=== PATIENT | male | born 1980 | race Two or more races ===

== ENCOUNTER 2017-09-25 14:23 | Emergency (ER) | payer MEDICAID ==
[~2017-09-25] VITALS: Ht 165.1 cm; Wt 67.9 kg
[2017-09-25 14:46] LABS: BASOPHILS % (AUTO) 0.4 % (0-1); EOSINOPHILS # (AUTO) 0.1 X10'3 (0-0.9); EOSINOPHILS % (AUTO) 1.2 % (0-6); HEMATOCRIT 43.6 % (42.0-52.0); HEMOGLOBIN 14.9 g/dl (14.0-17.9); LYMPHOCYTES # (AUTO) 1.8 X10'3 (1.1-4.8); LYMPHOCYTES % (AUTO) 15.8 % (21-51); MEAN CORPUSCULAR HEMOGLOBIN 33.6 PG (27.0-31.0); MEAN CORPUSCULAR HGB CONC 34.1 % (33.0-36.5); MEAN CORPUSCULAR VOLUME 98.4 FL (78-98); MEAN PLATELET VOLUME 7.6 FL (7.4-10.4); MONOCYTES # (AUTO) 0.7 X10'3 (0-0.9); MONOCYTES % (AUTO) 6.3 % (2-12); NEUTROPHILS # (AUTO) 8.9 X10'3 (1.8-7.7); NEUTROPHILS % (AUTO) 76.3 % (42-75); PLATELET COUNT 245 X10'3 (140-440); RED BLOOD COUNT 4.43 X10'6 (4.70-6.10); RED CELL DISTRIBUTION WIDTH 12.9 % (11.5-14.5); WHITE BLOOD COUNT 11.7 X10'3 (4.5-11.0)
[2017-09-25 14:56] LABS: INR 0.9 INR; PROTHROMBIN TIME 9.4 SECONDS (9.0-12.0)
[2017-09-25 15:02] LABS: ALANINE AMINOTRANSFERASE 72 U/L (12-78); ALBUMIN 3.7 G/DL (3.4-5.0); ALBUMIN/GLOBULIN RATIO 1.1 (1.1-1.5); ALKALINE PHOSPHATASE 103 IU/L (46-116); ANION GAP 9 (8-16); ASPARTATE AMINO TRANSFERASE 128 U/L (10-37); BILIRUBIN,TOTAL 0.3 MG/DL (0.1-1.0); BLOOD UREA NITROGEN 17 MG/DL (7-18); CALCIUM 8.1 MG/DL (8.5-10.1); CHLORIDE 99 MMOL/L (99-107); GLUCOSE 155 MG/DL (70-104); POTASSIUM 4.4 MMOL/L (3.5-5.1); SODIUM 137 MMOL/L (135-145); TOTAL CARBON DIOXIDE 29.2 MMOL/L (24-32); TOTAL PROTEIN 7.2 G/DL (6.4-8.2); eGFR 85 ML/MIN
[2017-09-25] MEDS ORDERED: ondansetron/PF 4mg/2ml inj IV ONE (17:10)
[2017-09-25] MEDS ORDERED: pantoprazole 40 MG vial IV ONE (17:10)
[2017-09-25] MEDS ORDERED: normal saline 1000ML IV soln IVB ONE (17:10)
[2017-09-25 17:19] LABS: CLARITY,URINE Clear (Clear); COLOR,URINE Yellow (Yellow); GLUCOSE, URINE Negative (Neg); KETONES,URINE Negative (Neg); LEUKOCYTE ESTERASE ,URINE Negative (Neg); NITRITES, URINE Negative (Neg); OCCULT BLOOD,URINE Small (Neg); PH,URINE 7.5 (4.8-8.0); PROTEIN,URINE Trace mg/dl (Neg)
[2017-09-25 17:20] LABS: LIPASE 243 U/L (73-393)
[2017-09-25 17:27] LABS: UA COLLECTION TYPE CLN CATCH MIDSTREAM
[2017-09-25 17:28] LABS: BACTERIA,URINE NONE SEEN /HPF (Neg); MUCUS STRANDS NONE SEEN /LPF (Neg); RBC,URINE 0-2 /HPF (0-2); SQUAMOUS EPITHELIAL CELL,UR NONE SEEN /LPF (FEW); WBC,URINE NONE SEEN /HPF (0-4)
[2017-09-25] MEDS ORDERED: PANT-47 PO (17:44)
[2017-09-25] MEDS ORDERED: sucralfate 1 gm tablet PO ONE (18:10)
[2017-09-25 18:18] VITALS: BP 155/81
== END 2017-09-25 18:22 | disposition home or self-care (01) ==
LOC: ER 14:23
DX: R10.31 Right lower quadrant pain (principal); R11.2 Nausea with vomiting, unspecified; F10.10 Alcohol abuse, uncomplicated; K21.9 Gastro-esophageal reflux disease without esophagitis
CPT/HCPCS: 36415; 80053; 81001; 83690; 85025; 85610; 96374; 96375; 99284; C9113; J2270; J2405; J7030

== ENCOUNTER 2018-11-20 11:22 | Inpatient (IN) | payer MEDICAID ==
[~2018-11-20] VITALS: Ht 167.6 cm; Wt 62.6 kg
[2018-11-20] VITALS (12 sets, daily range): BP systolic 119–145; BP diastolic 72–97
[~2018-11-20 11:22] MED LIST: PANT-47 PO
--- NOTE | 2018-11-20 11:49 | NUR ---
BIB EMS WITH C/O SYNCOPAL EPISODE. STRIKING BACK OF HEAD WITH FALL. HX DARK, BLOODY STOOLS AND EMESIS X 2 DAYS. STATES LOST CONSCIOUSNESS AT TIME OF INJURY. SUPERFICIAL ABRASION NOTED TO RIGHT PARIETAL.
--- NOTE | 2018-11-20 12:00 | NUR ---
DRIED, DARK BROWN BLOOD NOTED INSIDE RIGHT EAR AND UPPER CHEST AREAS. PT C/O HEADACHE AND ABD PAIN.
[2018-11-20 12:28] LABS: EOSINOPHILS % (AUTO) 0 % (0-6); MEAN CORPUSCULAR HGB CONC 29.8 g/dL (33.0-36.5)
[2018-11-20 12:29] LABS: BASOPHILS # (AUTO) 0.1 X10'3 (0-0.2); BASOPHILS % (AUTO) 0.3 % (0-1); LYMPHOCYTES # (AUTO) 0.9 X10'3 (1.1-4.8); LYMPHOCYTES % (AUTO) 2.7 % (21-51); MEAN CORPUSCULAR HEMOGLOBIN 21.1 PG (27.0-31.0); MEAN CORPUSCULAR VOLUME 70.6 FL (78-98); MEAN PLATELET VOLUME 7.2 FL (7.4-10.4); MONOCYTES # (AUTO) 1.2 X10'3 (0-0.9); MONOCYTES % (AUTO) 3.6 % (2-12); NEUTROPHILS # (AUTO) 29.9 X10'3 (1.8-7.7); NEUTROPHILS % (AUTO) 93.4 % (42-75); PLATELET COUNT 260 X10'3 (140-440); RED BLOOD COUNT 2.51 X10'6 (4.70-6.10); RED CELL DISTRIBUTION WIDTH 20.3 % (11.5-14.5)
[2018-11-20 12:33] LABS: WHITE BLOOD COUNT 32.1 X10'3 (4.5-11.0)
[2018-11-20 12:34] LABS: HEMATOCRIT 17.7 % (42.0-52.0); HEMOGLOBIN 5.3 g/dl (14.0-17.9)
[2018-11-20 12:44] LABS: ALBUMIN 3.3 G/DL (3.4-5.0); ALBUMIN/GLOBULIN RATIO 1.1 (1.1-1.5); ALKALINE PHOSPHATASE 58 IU/L (46-116); ANION GAP 28 (8-16); ASPARTATE AMINO TRANSFERASE 67 U/L (10-37); BILIRUBIN,TOTAL 0.9 MG/DL (0.1-1.0); BLOOD UREA NITROGEN 17 MG/DL (7-18); BUN/CREATININE RATIO 10.7 (5.4-32.0); CALCIUM 8.8 MG/DL (8.5-10.1); CHLORIDE 77 MMOL/L (99-107); CREATININE 1.59 MG/DL (0.60-1.10); GLUCOSE 101 MG/DL (70-104); POTASSIUM 3.2 MMOL/L (3.5-5.1); TOTAL PROTEIN 6.4 G/DL (6.4-8.2); eGFR 49 ML/MIN
[2018-11-20] MEDS ORDERED: ondansetron/PF 4mg/2ml inj IV ONE (12:55)
[2018-11-20 12:56] LABS: SODIUM 119 MMOL/L (135-145)
[2018-11-20 13:16] LABS: ALANINE AMINOTRANSFERASE 55 U/L (12-78); ETHANOL 0.117 GM/DL (0.0-0.010)
[2018-11-20 13:19] LABS: INR 1.1 INR; PARTIAL THROMBOPLASTIN TIME 28 SECONDS (22-32)
[2018-11-20 13:19] LABS: TOTAL CELLS COUNTED 100
[2018-11-20 13:20] LABS: ANISOCYTOSIS 3+; HYPOCHROMASIA 1+; PLATELET ESTIMATE NORMAL
[2018-11-20] MEDS ORDERED: octreotide inj. 1,250 MCG in normal saline 250ml IV soln 250 ML IV SCH (13:45)
[2018-11-20] MEDS ORDERED: octreotide inj. 1,250 MCG in normal saline 250ml IV soln 250 ML IV ONE (13:45)
[2018-11-20] MEDS ORDERED: pantoprazole IV 80 MG in normal saline 100ml IV soln 100 ML IV ONE ×4 (13:45)
[2018-11-20] MEDS ORDERED: pantoprazole 40 MG vial IV ONE ×2 (13:50→14:45)
[2018-11-20] MEDS ORDERED: pantoprazole 40MG/NS 100ML BAG 100 ML IV SCH (13:50)
[2018-11-20] MEDS ORDERED: LORazepam 2 mg/ml vial IV ONE (14:10)
[2018-11-20] MEDS ORDERED: MIDAZolam 5mg/5ml vial ONE ×2 (14:20→16:54)
[2018-11-20] MEDS ORDERED: fentaNYL/PF 50MCG/1 ML 2ML syringe ONE ×2 (14:20→16:54)
[2018-11-20] MEDS: K, MAG and/or Phos replacement - Verify level? MC SCH (14:20)
[2018-11-20] MEDS ORDERED: epiNEPHrine 0.1mg/ml 10ml syringe ONE (14:21)
[2018-11-20] MEDS ORDERED: LIDOcaine Viscous 15ml cup ONE (14:21)
[2018-11-20 14:24] LABS: CLARITY,URINE CLEAR (Clear); COLOR,URINE STRAW (Yellow); GLUCOSE, URINE NEGATIVE (Neg); KETONES,URINE TRACE mg/dl (Neg); LEUKOCYTE ESTERASE ,URINE NEGATIVE (Neg); NITRITES, URINE NEGATIVE (Neg); OCCULT BLOOD,URINE MODERATE (Neg); PH,URINE 5.5 (4.8-8.0); PROTEIN,URINE NEGATIVE (Neg); UROBILINOGEN,URINE 0.2 E.U/dL (0.2-1.0)
[2018-11-20 14:25] LABS: UA COLLECTION TYPE CLN CATCH MIDSTREAM
[2018-11-20] MEDS ORDERED: normal saline 1000ML IV soln IVB ONE (14:25)
[2018-11-20 14:31] LABS: URINE AMPHETAMINE SCREEN NEGATIVE (Neg); URINE BARBITUATE SCREEN NEGATIVE (Neg); URINE BENZODIAZEPINES SCREEN NEGATIVE (Neg); URINE CANNABINOID SCREEN NEGATIVE (Neg); URINE COCAINE SCREEN NEGATIVE (Neg); URINE METHADONE SCREEN NEGATIVE (Neg); URINE OPIATE SCREEN NEGATIVE (Neg); URINE PHENCYCLIDINE SCREEN NEGATIVE (Neg)
[2018-11-20 14:32] LABS: HYALINE CASTS 0-3 /LPF (NEGATIVE); MUCUS STRANDS NONE SEEN /LPF (Neg); SQUAMOUS EPITHELIAL CELL,UR FEW /LPF (FEW)
[2018-11-20 14:33] LABS: BACTERIA,URINE FEW /HPF (Neg); RBC,URINE 0-2 /HPF (0-2); WBC,URINE 0-4 /HPF (0-4)
[2018-11-20] MEDS ORDERED: magnesium 2GM in 50ml NS 50 ML IV PRN (14:40)
[2018-11-20] MEDS ORDERED: haloperidol 5mg tablet PO PRN (14:40)
[2018-11-20] MEDS ORDERED: dextrose 50%-water 50ml dispensing syringe IV PRN (14:40)
[2018-11-20] MEDS ORDERED: potassium Cl 20 mEq SR tablet PO PRN (14:40)
[2018-11-20] MEDS ORDERED: acetaminophen 325mg tablet PO PRN ×2 (14:40)
[2018-11-20] MEDS ORDERED: LORazepam 2 mg/ml vial IV PRN (14:40)
[2018-11-20] MEDS ORDERED: haloperidol lactate 5mg/ml inj IM PRN (14:40)
[2018-11-20] MEDS ORDERED: magnesium Cl slow-release 64mg tablet PO PRN (14:40)
[2018-11-20] MEDS ORDERED: magnesium 4gm in 100ml NS 100 ML IV PRN (14:40)
[2018-11-20] MEDS ORDERED: thiamine 100mg/ml 2ml inj. IV ONE (14:40)
[2018-11-20] MEDS ORDERED: NO HOME MEDS (14:55)
--- NOTE | 2018-11-20 15:13 | NUR ---
UNIT OF BLOOD DONE TRANSFUSING AT 1513 99.6 F, HR 114, 134/95, RR 27. NO ADVERSE REACTIONS NOTED
[2018-11-20] MEDS: pantoprazole 40MG/NS 100ML BAG 100 ML IV SCH ×3 (16:00→23:30)
[2018-11-20 16:05] LABS: ALANINE AMINOTRANSFERASE 57 U/L (12-78); ALBUMIN 2.7 G/DL (3.4-5.0); ALKALINE PHOSPHATASE 52 IU/L (46-116); ASPARTATE AMINO TRANSFERASE 80 U/L (10-37); BILIRUBIN,DIRECT 0.2 MG/DL (0-0.3); BILIRUBIN,TOTAL 0.7 MG/DL (0.1-1.0); TOTAL PROTEIN 5.5 G/DL (6.4-8.2)
[2018-11-20 17:33] LABS: ALBUMIN 2.6 G/DL (3.4-5.0); ANION GAP 14 (8-16); BLOOD UREA NITROGEN 16 MG/DL (7-18); BUN/CREATININE RATIO 13.7 (5.4-32.0); CALCIUM 7.3 MG/DL (8.5-10.1); CHLORIDE 88 MMOL/L (99-107); CREATININE 1.17 MG/DL (0.60-1.10); GLUCOSE 124 MG/DL (70-104); POTASSIUM 3.8 MMOL/L (3.5-5.1); SODIUM 124 MMOL/L (135-145); TOTAL CARBON DIOXIDE 21.9 MMOL/L (24-32); eGFR 70 ML/MIN
[2018-11-20 17:40] LABS: BASOPHILS % (AUTO) 0.2 % (0-1); EOSINOPHILS % (AUTO) 0 % (0-6); LYMPHOCYTES # (AUTO) 0.4 X10'3 (1.1-4.8); LYMPHOCYTES % (AUTO) 2.1 % (21-51); MEAN CORPUSCULAR HEMOGLOBIN 24.3 PG (27.0-31.0); MEAN CORPUSCULAR HGB CONC 31.8 g/dL (33.0-36.5); MEAN CORPUSCULAR VOLUME 76.4 FL (78-98); MEAN PLATELET VOLUME 6.9 FL (7.4-10.4); MONOCYTES # (AUTO) 0.7 X10'3 (0-0.9); MONOCYTES % (AUTO) 3.6 % (2-12); NEUTROPHILS # (AUTO) 19.2 X10'3 (1.8-7.7); NEUTROPHILS % (AUTO) 94.1 % (42-75); PLATELET COUNT 178 X10'3 (140-440); RED BLOOD COUNT 2.68 X10'6 (4.70-6.10); RED CELL DISTRIBUTION WIDTH 25.1 % (11.5-14.5); WHITE BLOOD COUNT 20.4 X10'3 (4.5-11.0)
[2018-11-20 17:45] LABS: HEMATOCRIT 20.4 % (42.0-52.0); HEMOGLOBIN 6.5 g/dl (14.0-17.9)
--- NOTE | 2018-11-20 17:56 | NUR ---
1745 - Informed of critical H&H - Dr Powers on unit and notified. New order for 2 more units of PRBCs received.
--- NOTE | 2018-11-20 18:20 | NUR ---
Problems reprioritized. Patient report given, questions answered & plan of care reviewed with JULIA Rothman.
--- NOTE | 2018-11-20 18:30 | NUR ---
Patient in room CICU 2013. I have received report from Derik DUMONT and had the opportunity to ask questions and assume patient care. Patient resting in bed, alert/oriented x4. Complaining of pain to head, requesting "something for pain". Patient in sinus tachyardia with rate in 120's, BP in 120s systolically. 2nd unit PRBC currently infusing, as well as sandostatin and protonix. Will administer pain medication as ordered by MD, will continue to monitor patient closely.
--- NOTE | 2018-11-20 19:00 | NUR ---
Notified Saroj Beltre regarding patient's 1744 HH of 6.5 and 20.4. Order received to give 2 more units PRBC and to transfuse for hemoglobin below 8.2.
[2018-11-20] MEDS: ondansetron/PF 4mg/2ml inj IV PRN (19:40)
--- NOTE | 2018-11-20 21:00 | NUR ---
Spoke with patient's mother, Narcisa, on telephone. Patient stating it is okay to give Narcisa information via telephone. Mother stating concern over patient due to the fact that "he drinks a lot". Mother updated on patient condition, all questions answered. Addendum: 11/20/18 at 2308 by Lorna Granados RN Patient denying alcohol use during admission assessment, states he drinks "about once a week". Mother previously stated via telephone that patient drinks significantly, blood alcohol levels also indicating patient drinks significant amount of alcohol.
[2018-11-20] MEDS ORDERED: diphenhydrAMINE 25mg capsule PO PRN (22:10)
[2018-11-20] MEDS: metoclopramide 5 mg/ml inj IV PRN (22:22)
[2018-11-21] VITALS (24 sets, daily range): BP systolic 116–154; BP diastolic 62–97
[2018-11-21] MEDS ORDERED: thiamine inj. 100 MG in normal saline 100ml IV soln 99 ML IV ONE (00:20)
[2018-11-21 03:05] LABS: BASOPHILS # (AUTO) 0.1 X10'3 (0-0.2); BASOPHILS % (AUTO) 0.3 % (0-1); EOSINOPHILS % (AUTO) 0 % (0-6); HEMATOCRIT 32.7 % (42.0-52.0); HEMOGLOBIN 10.7 g/dl (14.0-17.9); LYMPHOCYTES # (AUTO) 0.9 X10'3 (1.1-4.8); LYMPHOCYTES % (AUTO) 4.5 % (21-51); MEAN CORPUSCULAR HEMOGLOBIN 25.9 PG (27.0-31.0); MEAN CORPUSCULAR HGB CONC 32.7 g/dL (33.0-36.5); MEAN CORPUSCULAR VOLUME 79.3 FL (78-98); MEAN PLATELET VOLUME 7.3 FL (7.4-10.4); MONOCYTES # (AUTO) 1.1 X10'3 (0-0.9); MONOCYTES % (AUTO) 5.6 % (2-12); NEUTROPHILS # (AUTO) 17.2 X10'3 (1.8-7.7); NEUTROPHILS % (AUTO) 89.6 % (42-75); PLATELET COUNT 175 X10'3 (140-440); RED BLOOD COUNT 4.12 X10'6 (4.70-6.10); RED CELL DISTRIBUTION WIDTH 21.8 % (11.5-14.5); WHITE BLOOD COUNT 19.3 X10'3 (4.5-11.0)
[2018-11-21 03:09] LABS: INR 1.2 INR; PARTIAL THROMBOPLASTIN TIME 32 SECONDS (22-32); PROTHROMBIN TIME 11.8 SECONDS (9.0-12.0)
[2018-11-21 03:12] LABS: ALANINE AMINOTRANSFERASE 65 U/L (12-78); ALKALINE PHOSPHATASE 61 IU/L (46-116); ANION GAP 7 (8-16); ASPARTATE AMINO TRANSFERASE 104 U/L (10-37); BILIRUBIN,TOTAL 1.1 MG/DL (0.1-1.0); BLOOD UREA NITROGEN 17 MG/DL (7-18); BUN/CREATININE RATIO 12.1 (5.4-32.0); CALCIUM 8.5 MG/DL (8.5-10.1); CHLORIDE 96 MMOL/L (99-107); CREATININE 1.41 MG/DL (0.60-1.10); GLUCOSE 78 MG/DL (70-104); PHOSPHORUS 2.4 MG/DL (2.3-4.5); SODIUM 132 MMOL/L (135-145); TOTAL CARBON DIOXIDE 29.4 MMOL/L (24-32); TOTAL PROTEIN 6.1 G/DL (6.4-8.2); eGFR 57 ML/MIN
[2018-11-21] MEDS: normal saline 1000ml 1,000 ML IV SCH ×2 (03:18→03:56)
[2018-11-21 04:17] LABS: PLATELET ESTIMATE NORMAL; TOTAL CELLS COUNTED 100
[2018-11-21 04:18] LABS: ANISOCYTOSIS 3+; HYPOCHROMASIA 1+; MICROCYTOSIS 1+; POLYCHROMASIA 1+
--- NOTE | 2018-11-21 06:21 | NUR ---
Problems reprioritized. Patient report given, questions answered & plan of care reviewed with Derik DUMONT.
--- NOTE | 2018-11-21 06:22 | NUR ---
Patient in room CICU 2013. I have received report from JULIA Rothman and had the opportunity to ask questions and assume patient care.
[2018-11-21] MEDS ORDERED: epiNEPHrine 0.1mg/ml 10ml syringe IV ONE (06:40)
[2018-11-21] MEDS: pantoprazole 40MG/NS 100ML BAG 100 ML IV SCH ×4 (06:49→21:45)
[2018-11-21] MEDS ORDERED: epiNEPHrine 0.1mg/ml 10ml syringe ONE (06:53)
--- NOTE | 2018-11-21 06:57 | NUR ---
Order for Epinephrine received from ER doctor. I spoke with a nurse in the ER who said he would pass a message to the ordering provider asking for clarification on this order. Not administering the medication for now and will follow up with refrigerator mover if no further clarification received from ordering provider.
[2018-11-21] MEDS: K, MAG and/or Phos replacement - Verify level? MC SCH (07:00)
[2018-11-21] MEDS: ondansetron/PF 4mg/2ml inj IV PRN (07:13)
--- NOTE | 2018-11-21 08:45 | NUR ---
Pt c/o anxiety, restlessness, agitation, and inability to sleep or rest. He is visibly anxious and frustrated. PO Ativan given per NOV.
[2018-11-21] MEDS: LORazepam 1 MG tablet PO PRN ×2 (08:53→20:36)
[2018-11-21 09:05] LABS: BASOPHILS # (AUTO) 0.1 X10'3 (0-0.2); BASOPHILS % (AUTO) 0.4 % (0-1); EOSINOPHILS % (AUTO) 0 % (0-6); HEMOGLOBIN 10.4 g/dl (14.0-17.9); LYMPHOCYTES # (AUTO) 0.9 X10'3 (1.1-4.8); LYMPHOCYTES % (AUTO) 4.7 % (21-51); MEAN CORPUSCULAR HEMOGLOBIN 25.9 PG (27.0-31.0); MEAN CORPUSCULAR HGB CONC 32.5 g/dL (33.0-36.5); MEAN CORPUSCULAR VOLUME 79.7 FL (78-98); MONOCYTES % (AUTO) 5.4 % (2-12); NEUTROPHILS # (AUTO) 16.7 X10'3 (1.8-7.7); NEUTROPHILS % (AUTO) 89.5 % (42-75); PLATELET COUNT 173 X10'3 (140-440); RED BLOOD COUNT 4.01 X10'6 (4.70-6.10); RED CELL DISTRIBUTION WIDTH 21.9 % (11.5-14.5); WHITE BLOOD COUNT 18.6 X10'3 (4.5-11.0)
[2018-11-21 09:54] LABS: ANISOCYTOSIS 3+; HYPOCHROMASIA 1+; MICROCYTOSIS 1+; PLATELET ESTIMATE NORMAL; POLYCHROMASIA FEW; TOTAL CELLS COUNTED 100
[2018-11-21 09:55] LABS: ELLIPTOCYTES FEW; SCHISTOCYTES FEW
[2018-11-21] MEDS: thiamine 100mg tablet PO SCH (11:27)
[2018-11-21] MEDS: multivitamin oral liquid (Certavite) 5ml cup PO SCH (11:27)
[2018-11-21] MEDS: folic acid 1mg tablet PO SCH (11:27)
[2018-11-21 11:40] LABS: BASOPHILS % (AUTO) 0.1 % (0-1); EOSINOPHILS % (AUTO) 0 % (0-6); HEMATOCRIT 31.3 % (42.0-52.0); HEMOGLOBIN 10.3 g/dl (14.0-17.9); LYMPHOCYTES # (AUTO) 1.1 X10'3 (1.1-4.8); LYMPHOCYTES % (AUTO) 6.1 % (21-51); MEAN CORPUSCULAR HGB CONC 32.7 g/dL (33.0-36.5); MEAN CORPUSCULAR VOLUME 79.4 FL (78-98); MEAN PLATELET VOLUME 7.2 FL (7.4-10.4); MONOCYTES % (AUTO) 5.4 % (2-12); NEUTROPHILS # (AUTO) 15.7 X10'3 (1.8-7.7); NEUTROPHILS % (AUTO) 88.4 % (42-75); PLATELET COUNT 164 X10'3 (140-440); RED BLOOD COUNT 3.95 X10'6 (4.70-6.10); RED CELL DISTRIBUTION WIDTH 21.2 % (11.5-14.5); WHITE BLOOD COUNT 17.8 X10'3 (4.5-11.0)
[2018-11-21 11:45] LABS: ALBUMIN 2.7 G/DL (3.4-5.0); ANION GAP 6 (8-16); BLOOD UREA NITROGEN 18 MG/DL (7-18); BUN/CREATININE RATIO 15.1 (5.4-32.0); CALCIUM 8.1 MG/DL (8.5-10.1); CHLORIDE 99 MMOL/L (99-107); CREATININE 1.19 MG/DL (0.60-1.10); GLUCOSE 77 MG/DL (70-104); POTASSIUM 3.6 MMOL/L (3.5-5.1); SODIUM 133 MMOL/L (135-145); TOTAL CARBON DIOXIDE 28.3 MMOL/L (24-32); eGFR 69 ML/MIN
[2018-11-21] MEDS: metoclopramide 5 mg/ml inj IV PRN (16:16)
[2018-11-21 17:09] LABS: BASOPHILS % (AUTO) 0.2 % (0-1); EOSINOPHILS % (AUTO) 0 % (0-6); HEMATOCRIT 32.9 % (42.0-52.0); HEMOGLOBIN 10.8 g/dl (14.0-17.9); LYMPHOCYTES # (AUTO) 0.8 X10'3 (1.1-4.8); LYMPHOCYTES % (AUTO) 5.4 % (21-51); MEAN CORPUSCULAR HEMOGLOBIN 26.3 PG (27.0-31.0); MEAN CORPUSCULAR HGB CONC 32.9 g/dL (33.0-36.5); MEAN CORPUSCULAR VOLUME 79.9 FL (78-98); MEAN PLATELET VOLUME 7.1 FL (7.4-10.4); MONOCYTES # (AUTO) 0.7 X10'3 (0-0.9); MONOCYTES % (AUTO) 4.3 % (2-12); NEUTROPHILS # (AUTO) 13.9 X10'3 (1.8-7.7); NEUTROPHILS % (AUTO) 90.1 % (42-75); PLATELET COUNT 176 X10'3 (140-440); RED BLOOD COUNT 4.12 X10'6 (4.70-6.10); RED CELL DISTRIBUTION WIDTH 21.2 % (11.5-14.5); WHITE BLOOD COUNT 15.5 X10'3 (4.5-11.0)
[2018-11-21 17:11] LABS: ALBUMIN 2.7 G/DL (3.4-5.0); ANION GAP 7 (8-16); BLOOD UREA NITROGEN 18 MG/DL (7-18); BUN/CREATININE RATIO 15.4 (5.4-32.0); CALCIUM 8.3 MG/DL (8.5-10.1); CHLORIDE 99 MMOL/L (99-107); CREATININE 1.17 MG/DL (0.60-1.10); GLUCOSE 128 MG/DL (70-104); POTASSIUM 3.4 MMOL/L (3.5-5.1); SODIUM 133 MMOL/L (135-145); TOTAL CARBON DIOXIDE 27.5 MMOL/L (24-32); eGFR 70 ML/MIN
[2018-11-21 17:52] LABS: ANISOCYTOSIS 3+; MICROCYTOSIS 1+; PLATELET ESTIMATE NORMAL
--- NOTE | 2018-11-21 18:17 | NUR ---
Problems reprioritized. Patient report given, questions answered & plan of care reviewed with JULIA Rothman.
--- NOTE | 2018-11-21 18:25 | NUR ---
Patient in room CICU 2013. I have received report from Derik DUMONT and had the opportunity to ask questions and assume patient care. Patient resting comfortably in bed, alert/oriented x4. HR in high 70s in sinus rhythm, BP 132/92. Will continue to monitor patient.
[2018-11-21 22:12] LABS: BASOPHILS # (AUTO) 0.1 X10'3 (0-0.2); BASOPHILS % (AUTO) 0.7 % (0-1); EOSINOPHILS % (AUTO) 0.1 % (0-6); HEMATOCRIT 31.1 % (42.0-52.0); HEMOGLOBIN 10.2 g/dl (14.0-17.9); LYMPHOCYTES # (AUTO) 1.1 X10'3 (1.1-4.8); LYMPHOCYTES % (AUTO) 7.8 % (21-51); MEAN CORPUSCULAR HEMOGLOBIN 25.8 PG (27.0-31.0); MEAN CORPUSCULAR HGB CONC 32.6 g/dL (33.0-36.5); MEAN CORPUSCULAR VOLUME 79.2 FL (78-98); MONOCYTES # (AUTO) 0.6 X10'3 (0-0.9); MONOCYTES % (AUTO) 4.3 % (2-12); NEUTROPHILS # (AUTO) 11.8 X10'3 (1.8-7.7); NEUTROPHILS % (AUTO) 87.1 % (42-75); PLATELET COUNT 190 X10'3 (140-440); RED BLOOD COUNT 3.93 X10'6 (4.70-6.10); RED CELL DISTRIBUTION WIDTH 21.1 % (11.5-14.5); WHITE BLOOD COUNT 13.6 X10'3 (4.5-11.0)
[2018-11-21 22:18] LABS: ALBUMIN 2.7 G/DL (3.4-5.0); ANION GAP 8 (8-16); BLOOD UREA NITROGEN 17 MG/DL (7-18); CALCIUM 8.5 MG/DL (8.5-10.1); CHLORIDE 100 MMOL/L (99-107); CREATININE 1.13 MG/DL (0.60-1.10); GLUCOSE 112 MG/DL (70-104); POTASSIUM 3.6 MMOL/L (3.5-5.1); SODIUM 134 MMOL/L (135-145); TOTAL CARBON DIOXIDE 26.2 MMOL/L (24-32); eGFR 73 ML/MIN
--- NOTE | 2018-11-21 23:55 | NUR ---
Noticed patient's sandostatin was DC'd due to reaching 25 hr completion due date/time as ordered by Katie CONDE MD. Relatedly, Dr. Culver's consultation note states "recommend high dose PPI for 24 hrs". Called Saroj Beltre NP to verify whether sandostatin is indeed meant to be discontinued, states it is okay to leave sandostatin DC'd at this time.
[2018-11-22] VITALS (19 sets, daily range): BP systolic 102–148; BP diastolic 39–95
[2018-11-22] MEDS: pantoprazole 40MG/NS 100ML BAG 100 ML IV SCH ×2 (03:13→08:43)
[2018-11-22] MEDS ORDERED: mag hydrox/Alum hydrox/simeth 30ml oral suspension PO PRN (03:45)
[2018-11-22] MEDS: metoclopramide 5 mg/ml inj IV PRN ×2 (03:48→17:03)
[2018-11-22] MEDS: ondansetron/PF 4mg/2ml inj IV PRN ×2 (03:55→21:02)
[2018-11-22 04:41] LABS: BASOPHILS # (AUTO) 0.1 X10'3 (0-0.2); BASOPHILS % (AUTO) 0.5 % (0-1); EOSINOPHILS # (AUTO) 0.1 X10'3 (0-0.9); EOSINOPHILS % (AUTO) 0.5 % (0-6); HEMATOCRIT 37.6 % (42.0-52.0); HEMOGLOBIN 12.1 g/dl (14.0-17.9); LYMPHOCYTES # (AUTO) 1.5 X10'3 (1.1-4.8); LYMPHOCYTES % (AUTO) 11.3 % (21-51); MEAN CORPUSCULAR HEMOGLOBIN 25.8 PG (27.0-31.0); MEAN CORPUSCULAR HGB CONC 32.2 g/dL (33.0-36.5); MEAN CORPUSCULAR VOLUME 79.9 FL (78-98); MEAN PLATELET VOLUME 7.2 FL (7.4-10.4); MONOCYTES # (AUTO) 0.7 X10'3 (0-0.9); MONOCYTES % (AUTO) 5.1 % (2-12); NEUTROPHILS # (AUTO) 10.7 X10'3 (1.8-7.7); NEUTROPHILS % (AUTO) 82.6 % (42-75); PLATELET COUNT 216 X10'3 (140-440); RED BLOOD COUNT 4.71 X10'6 (4.70-6.10); RED CELL DISTRIBUTION WIDTH 21.1 % (11.5-14.5); WHITE BLOOD COUNT 12.9 X10'3 (4.5-11.0)
[2018-11-22 04:53] LABS: PROTHROMBIN TIME 10.4 SECONDS (9.0-12.0)
[2018-11-22 04:54] LABS: PARTIAL THROMBOPLASTIN TIME 32 SECONDS (22-32)
[2018-11-22 04:56] LABS: ALANINE AMINOTRANSFERASE 231 U/L (12-78); ALBUMIN 3.3 G/DL (3.4-5.0); ALBUMIN/GLOBULIN RATIO 0.8 (1.1-1.5); ALKALINE PHOSPHATASE 85 IU/L (46-116); ANION GAP 10 (8-16); ASPARTATE AMINO TRANSFERASE 317 U/L (10-37); BLOOD UREA NITROGEN 15 MG/DL (7-18); CALCIUM 9.1 MG/DL (8.5-10.1); CHLORIDE 97 MMOL/L (99-107); CREATININE 1.15 MG/DL (0.60-1.10); GLUCOSE 71 MG/DL (70-104); MAGNESIUM 2.4 MG/DL (1.5-2.4); POTASSIUM 3.3 MMOL/L (3.5-5.1); SODIUM 135 MMOL/L (135-145); TOTAL CARBON DIOXIDE 27.7 MMOL/L (24-32); TOTAL PROTEIN 7.2 G/DL (6.4-8.2); eGFR 72 ML/MIN
[2018-11-22] MEDS: potassium Cl 20 mEq SR tablet PO PRN ×3 (05:30→16:02)
--- NOTE | 2018-11-22 06:30 | NUR ---
Patient in room CICU 2013. I have received report from JULIA Rothman and had the opportunity to ask questions and assume patient care.
--- NOTE | 2018-11-22 06:47 | NUR ---
Problems reprioritized. Patient report given, questions answered & plan of care reviewed with Janet DUMONT.
--- NOTE | 2018-11-22 06:47 | NUR ---
Problems reprioritized. Patient report given, questions answered & plan of care reviewed with Janet DUMONT.
[2018-11-22 07:14] LABS: ANISOCYTOSIS 3+; MICROCYTOSIS 1+; PLATELET ESTIMATE NORMAL
[2018-11-22] MEDS: K, MAG and/or Phos replacement - Verify level? MC SCH (08:00)
[2018-11-22] MEDS: folic acid 1mg tablet PO SCH (08:43)
[2018-11-22] MEDS: multivitamin oral liquid (Certavite) 5ml cup PO SCH (08:43)
[2018-11-22] MEDS: thiamine 100mg tablet PO SCH (08:43)
[2018-11-22 10:50] LABS: BASOPHILS # (AUTO) 0.1 X10'3 (0-0.2); BASOPHILS % (AUTO) 0.6 % (0-1); EOSINOPHILS # (AUTO) 0.1 X10'3 (0-0.9); EOSINOPHILS % (AUTO) 0.7 % (0-6); HEMOGLOBIN 10.6 g/dl (14.0-17.9); LYMPHOCYTES # (AUTO) 1.1 X10'3 (1.1-4.8); LYMPHOCYTES % (AUTO) 10.6 % (21-51); MEAN CORPUSCULAR HEMOGLOBIN 26.3 PG (27.0-31.0); MEAN CORPUSCULAR HGB CONC 33.1 g/dL (33.0-36.5); MEAN CORPUSCULAR VOLUME 79.6 FL (78-98); MEAN PLATELET VOLUME 6.8 FL (7.4-10.4); MONOCYTES # (AUTO) 0.7 X10'3 (0-0.9); MONOCYTES % (AUTO) 6.9 % (2-12); NEUTROPHILS # (AUTO) 8.6 X10'3 (1.8-7.7); NEUTROPHILS % (AUTO) 81.2 % (42-75); PLATELET COUNT 206 X10'3 (140-440); RED BLOOD COUNT 4.01 X10'6 (4.70-6.10); RED CELL DISTRIBUTION WIDTH 21.2 % (11.5-14.5); WHITE BLOOD COUNT 10.6 X10'3 (4.5-11.0)
[2018-11-22 10:58] LABS: ALBUMIN 2.8 G/DL (3.4-5.0); ANION GAP 7 (8-16); BLOOD UREA NITROGEN 16 MG/DL (7-18); BUN/CREATININE RATIO 13.3 (5.4-32.0); CALCIUM 8.3 MG/DL (8.5-10.1); CHLORIDE 99 MMOL/L (99-107); GLUCOSE 140 MG/DL (70-104); POTASSIUM 3.6 MMOL/L (3.5-5.1); SODIUM 134 MMOL/L (135-145); TOTAL CARBON DIOXIDE 27.9 MMOL/L (24-32); eGFR 68 ML/MIN
[2018-11-22 11:08] LABS: ANISOCYTOSIS 3+; HYPOCHROMASIA 1+; MICROCYTOSIS 1+; PLATELET ESTIMATE NORMAL
--- NOTE | 2018-11-22 13:08 | NUR ---
pt is awake and alert, oriented. VSS. one epidsode of black stool noted in bedside commode. c/o intermittent nausea, dizziness and lightheadedness when transferring from bed to commode. Dr. Powers arrived on unit and assessed pt, updated on pt condition. order received to transfer pt to PCU with tele. updated family on plan of care.
--- NOTE | 2018-11-22 16:09 | NUR ---
transfer order received. Report called to receiving nurse JULIA Layton. Transferred via wheelchair with [facility]. Special Issues communicated to receiving nurse.
[2018-11-22 17:11] LABS: BASOPHILS # (AUTO) 0.1 X10'3 (0-0.2); BASOPHILS % (AUTO) 0.5 % (0-1); EOSINOPHILS # (AUTO) 0.1 X10'3 (0-0.9); EOSINOPHILS % (AUTO) 0.8 % (0-6); HEMATOCRIT 34.1 % (42.0-52.0); HEMOGLOBIN 11.2 g/dl (14.0-17.9); LYMPHOCYTES # (AUTO) 0.9 X10'3 (1.1-4.8); LYMPHOCYTES % (AUTO) 9.8 % (21-51); MEAN CORPUSCULAR HEMOGLOBIN 26.2 PG (27.0-31.0); MEAN CORPUSCULAR HGB CONC 32.9 g/dL (33.0-36.5); MEAN CORPUSCULAR VOLUME 79.6 FL (78-98); MEAN PLATELET VOLUME 6.8 FL (7.4-10.4); MONOCYTES # (AUTO) 0.8 X10'3 (0-0.9); MONOCYTES % (AUTO) 7.8 % (2-12); NEUTROPHILS # (AUTO) 7.8 X10'3 (1.8-7.7); NEUTROPHILS % (AUTO) 81.1 % (42-75); PLATELET COUNT 235 X10'3 (140-440); RED BLOOD COUNT 4.29 X10'6 (4.70-6.10); RED CELL DISTRIBUTION WIDTH 21.3 % (11.5-14.5); WHITE BLOOD COUNT 9.7 X10'3 (4.5-11.0)
--- NOTE | 2018-11-22 17:19 | NUR ---
Patient arrived from ICU to room 3015B. Patient oriented to room and call light. Obtained VS- patient is stable - will continue to monitor.
--- NOTE | 2018-11-22 18:00 | NUR ---
Patient in room PCU 3016. I have received report from JULIA Steward and JULIA Carl Millersvilledorian and had the opportunity to ask questions and assume patient care.
--- NOTE | 2018-11-22 18:00 | NUR ---
Patient in room PCU 3016. I have received report from JULIA Steward and JULIA Carl bostondorian, and had the opportunity to ask questions and assume patient care.
--- NOTE | 2018-11-22 18:22 | NUR ---
Problems reprioritized. Patient report given, questions answered & plan of care reviewed with Sagrario DUMONT.
[2018-11-22 18:53] LABS: ANISOCYTOSIS 3+; ELLIPTOCYTES FEW; MICROCYTOSIS 1+; PLATELET ESTIMATE NORMAL
[2018-11-22 18:54] LABS: HYPOCHROMASIA 2+
--- NOTE | 2018-11-22 19:00 | NUR ---
Patient is very unsteady on his feet. During this shift, he was taken to the bathroom by a tech and reported becoming dizzy. I helped this tech take this patient to the bathroom. He will need at least 2 persons to assist him to the restroom.
[2018-11-22] MEDS: pantoprazole 40mg Tablet.DR PO SCH (20:39)
[2018-11-22] MEDS: LORazepam 1 MG tablet PO PRN (20:39)
[2018-11-22 23:03] LABS: BASOPHILS # (AUTO) 0.1 X10'3 (0-0.2); BASOPHILS % (AUTO) 0.7 % (0-1); EOSINOPHILS # (AUTO) 0.1 X10'3 (0-0.9); EOSINOPHILS % (AUTO) 0.8 % (0-6); HEMATOCRIT 33.1 % (42.0-52.0); HEMOGLOBIN 10.7 g/dl (14.0-17.9); LYMPHOCYTES % (AUTO) 11.2 % (21-51); MEAN CORPUSCULAR HEMOGLOBIN 25.8 PG (27.0-31.0); MEAN CORPUSCULAR HGB CONC 32.3 g/dL (33.0-36.5); MEAN CORPUSCULAR VOLUME 79.9 FL (78-98); MEAN PLATELET VOLUME 6.9 FL (7.4-10.4); MONOCYTES # (AUTO) 0.9 X10'3 (0-0.9); MONOCYTES % (AUTO) 9.5 % (2-12); NEUTROPHILS # (AUTO) 7.2 X10'3 (1.8-7.7); NEUTROPHILS % (AUTO) 77.8 % (42-75); PLATELET COUNT 222 X10'3 (140-440); RED BLOOD COUNT 4.14 X10'6 (4.70-6.10); RED CELL DISTRIBUTION WIDTH 21.2 % (11.5-14.5); WHITE BLOOD COUNT 9.3 X10'3 (4.5-11.0)
[2018-11-23] VITALS (7 sets, daily range): BP systolic 109–138; BP diastolic 65–93
[2018-11-23 05:58] LABS: BASOPHILS # (AUTO) 0.1 X10'3 (0-0.2); EOSINOPHILS # (AUTO) 0.1 X10'3 (0-0.9); EOSINOPHILS % (AUTO) 1.1 % (0-6); HEMATOCRIT 33.2 % (42.0-52.0); HEMOGLOBIN 10.8 g/dl (14.0-17.9); LYMPHOCYTES # (AUTO) 1.9 X10'3 (1.1-4.8); LYMPHOCYTES % (AUTO) 19.8 % (21-51); MEAN CORPUSCULAR HGB CONC 32.4 g/dL (33.0-36.5); MEAN CORPUSCULAR VOLUME 80.2 FL (78-98); MEAN PLATELET VOLUME 7.1 FL (7.4-10.4); MONOCYTES % (AUTO) 10.6 % (2-12); NEUTROPHILS # (AUTO) 6.4 X10'3 (1.8-7.7); NEUTROPHILS % (AUTO) 67.5 % (42-75); PLATELET COUNT 243 X10'3 (140-440); RED BLOOD COUNT 4.14 X10'6 (4.70-6.10); RED CELL DISTRIBUTION WIDTH 20.9 % (11.5-14.5); WHITE BLOOD COUNT 9.5 X10'3 (4.5-11.0)
[2018-11-23 06:12] LABS: PARTIAL THROMBOPLASTIN TIME 30 SECONDS (22-32)
--- NOTE | 2018-11-23 06:12 | NUR ---
Problems reprioritized. Patient report given, questions answered & plan of care reviewed with JULIA Roth.
[2018-11-23 06:14] LABS: ALANINE AMINOTRANSFERASE 181 U/L (12-78); ALBUMIN/GLOBULIN RATIO 0.9 (1.1-1.5); ALKALINE PHOSPHATASE 81 IU/L (46-116); ANION GAP 9 (8-16); ASPARTATE AMINO TRANSFERASE 117 U/L (10-37); BILIRUBIN,TOTAL 0.7 MG/DL (0.1-1.0); BLOOD UREA NITROGEN 12 MG/DL (7-18); BUN/CREATININE RATIO 11.5 (5.4-32.0); CALCIUM 8.7 MG/DL (8.5-10.1); CHLORIDE 98 MMOL/L (99-107); CREATININE 1.04 MG/DL (0.60-1.10); GLUCOSE 86 MG/DL (70-104); MAGNESIUM 2.2 MG/DL (1.5-2.4); PHOSPHORUS 4.2 MG/DL (2.3-4.5); POTASSIUM 4.1 MMOL/L (3.5-5.1); SODIUM 133 MMOL/L (135-145); TOTAL CARBON DIOXIDE 26.1 MMOL/L (24-32); TOTAL PROTEIN 6.4 G/DL (6.4-8.2); eGFR 80 ML/MIN
[2018-11-23] MEDS: ondansetron/PF 4mg/2ml inj IV PRN (07:07)
[2018-11-23] MEDS: multivitamin oral liquid (Certavite) 5ml cup PO SCH (07:07)
[2018-11-23] MEDS: thiamine 100mg tablet PO SCH (07:07)
[2018-11-23] MEDS: folic acid 1mg tablet PO SCH (07:07)
[2018-11-23] MEDS: pantoprazole 40mg Tablet.DR PO SCH ×2 (07:07→20:20)
[2018-11-23 07:24] LABS: ANISOCYTOSIS 3+; PLATELET ESTIMATE NORMAL
[2018-11-23 07:25] LABS: HYPOCHROMASIA 1+
[2018-11-23 07:26] LABS: ELLIPTOCYTES FEW; POLYCHROMASIA FEW
[2018-11-23] MEDS: K, MAG and/or Phos replacement - Verify level? MC SCH (08:00)
--- NOTE | 2018-11-23 11:00 | NUR ---
Patient complains of dizziness Paged Dr. Lezama- "Re: Sonny Ely in 2770H. patient orthostatic vitals are negative. patient still complains of dizziness. are you okay with discharge home today? thank you, Ira Berger [phone]" Addendum: 11/23/18 at 1110 by Ira Thomas RN spoke to Dr. Lezama after page, says that patient discharge will be re-assessed tomorrow. enter PT eval and treat order.
[2018-11-23 11:09] LABS: BASOPHILS # (AUTO) 0.1 X10'3 (0-0.2); EOSINOPHILS # (AUTO) 0.1 X10'3 (0-0.9); EOSINOPHILS % (AUTO) 1.7 % (0-6); HEMATOCRIT 32.5 % (42.0-52.0); HEMOGLOBIN 10.7 g/dl (14.0-17.9); LYMPHOCYTES # (AUTO) 1.3 X10'3 (1.1-4.8); LYMPHOCYTES % (AUTO) 17.9 % (21-51); MEAN CORPUSCULAR VOLUME 78.9 FL (78-98); MEAN PLATELET VOLUME 6.7 FL (7.4-10.4); MONOCYTES % (AUTO) 13.4 % (2-12); NEUTROPHILS # (AUTO) 4.9 X10'3 (1.8-7.7); PLATELET COUNT 228 X10'3 (140-440); RED BLOOD COUNT 4.12 X10'6 (4.70-6.10); RED CELL DISTRIBUTION WIDTH 20.9 % (11.5-14.5); WHITE BLOOD COUNT 7.4 X10'3 (4.5-11.0)
[2018-11-23 11:34] LABS: ANISOCYTOSIS 3+; MICROCYTOSIS 1+; PLATELET ESTIMATE NORMAL
[2018-11-23 11:35] LABS: ELLIPTOCYTES FEW
[2018-11-23 11:36] LABS: HYPOCHROMASIA 1+
[2018-11-23] MEDS: amox tr/potassium clavulanate 875/125mg TAB PO SCH ×2 (11:44→17:53)
[2018-11-23] MEDS: metoclopramide 5 mg/ml inj IV PRN (12:45)
[2018-11-23] MEDS: sucralfate 1gm/10ml UD suspension PO SCH ×2 (16:04→20:20)
--- NOTE | 2018-11-23 18:31 | NUR ---
Received report from Abhi DUMONT pt is awake eating dinner on RA in no apparent distress, call light and items of freq use within reach.
[2018-11-23] MEDS: LORazepam 1 MG tablet PO PRN (21:30)
[2018-11-24] VITALS (8 sets, daily range): BP systolic 102–162; BP diastolic 55–84
--- NOTE | 2018-11-24 03:49 | NUR ---
pt 0300 am vital signs had temp of 100.4 axillary had aide recheck oral temp came back at 98.9
--- NOTE | 2018-11-24 06:00 | NUR ---
Patient in room PCU 3016. I have received report from Aye DUMONT and had the opportunity to ask questions and assume patient care.
--- NOTE | 2018-11-24 06:16 | NUR ---
Gave report to Megan DUMONT pt is resting on RA in no apparent distress, breaths even and unlabored, call light within reach
[2018-11-24 06:34] LABS: BASOPHILS # (AUTO) 0.1 X10'3 (0-0.2); BASOPHILS % (AUTO) 0.7 % (0-1); EOSINOPHILS # (AUTO) 0.1 X10'3 (0-0.9); HEMATOCRIT 33.5 % (42.0-52.0); HEMOGLOBIN 11.2 g/dl (14.0-17.9); LYMPHOCYTES # (AUTO) 1.1 X10'3 (1.1-4.8); MEAN CORPUSCULAR HEMOGLOBIN 26.5 PG (27.0-31.0); MEAN CORPUSCULAR HGB CONC 33.3 g/dL (33.0-36.5); MEAN CORPUSCULAR VOLUME 79.5 FL (78-98); MEAN PLATELET VOLUME 7.1 FL (7.4-10.4); MONOCYTES # (AUTO) 1.3 X10'3 (0-0.9); MONOCYTES % (AUTO) 15.4 % (2-12); NEUTROPHILS # (AUTO) 5.8 X10'3 (1.8-7.7); NEUTROPHILS % (AUTO) 69.9 % (42-75); PARTIAL THROMBOPLASTIN TIME 30 SECONDS (22-32); PLATELET COUNT 266 X10'3 (140-440); RED BLOOD COUNT 4.21 X10'6 (4.70-6.10); RED CELL DISTRIBUTION WIDTH 21.2 % (11.5-14.5); WHITE BLOOD COUNT 8.3 X10'3 (4.5-11.0)
[2018-11-24 06:51] LABS: ALANINE AMINOTRANSFERASE 132 U/L (12-78); ALBUMIN 3.1 G/DL (3.4-5.0); ALBUMIN/GLOBULIN RATIO 0.8 (1.1-1.5); ALKALINE PHOSPHATASE 75 IU/L (46-116); ANION GAP 10 (8-16); ASPARTATE AMINO TRANSFERASE 55 U/L (10-37); BILIRUBIN,TOTAL 0.7 MG/DL (0.1-1.0); BLOOD UREA NITROGEN 12 MG/DL (7-18); BUN/CREATININE RATIO 11.2 (5.4-32.0); CALCIUM 8.7 MG/DL (8.5-10.1); CHLORIDE 98 MMOL/L (99-107); CREATININE 1.07 MG/DL (0.60-1.10); GLUCOSE 92 MG/DL (70-104); MAGNESIUM 2.1 MG/DL (1.5-2.4); PHOSPHORUS 4.5 MG/DL (2.3-4.5); POTASSIUM 3.8 MMOL/L (3.5-5.1); SODIUM 133 MMOL/L (135-145); TOTAL CARBON DIOXIDE 25.1 MMOL/L (24-32); TOTAL PROTEIN 6.8 G/DL (6.4-8.2); eGFR 78 ML/MIN
[2018-11-24] MEDS: pantoprazole 40mg Tablet.DR PO SCH ×2 (07:37→21:03)
[2018-11-24] MEDS: sucralfate 1gm/10ml UD suspension PO SCH ×4 (07:37→21:03)
[2018-11-24] MEDS: thiamine 100mg tablet PO SCH (07:37)
[2018-11-24] MEDS: folic acid 1mg tablet PO SCH (07:38)
[2018-11-24] MEDS: amox tr/potassium clavulanate 875/125mg TAB PO SCH ×2 (07:38→17:12)
[2018-11-24] MEDS: multivitamin oral liquid (Certavite) 5ml cup PO SCH (07:38)
[2018-11-24] MEDS: K, MAG and/or Phos replacement - Verify level? MC SCH (07:41)
--- NOTE | 2018-11-24 08:30 | NUR ---
PAGER ID: [phone] MESSAGE: Rm [id number], Jhoana. FYI, Pt heart rate went up to 159. HR is now in the 90s. Megan [phone]
[2018-11-24] MEDS: metoclopramide 5 mg/ml inj IV PRN ×2 (11:22→21:15)
--- NOTE | 2018-11-24 15:13 | NUR ---
PAGER ID: [phone] MESSAGE: [id number] Sean. FYI, Pt had a very small firm bowel movement that was dark brown/black in color. Megan [phone]
--- NOTE | 2018-11-24 18:25 | NUR ---
Patient in room U 3016. I have received report from Megan Weeks and had the opportunity to ask questions and assume patient care. Addendum: 11/24/18 at 1944 by Marialuisa Saini RN Amended: Links added.
--- NOTE | 2018-11-24 18:30 | NUR ---
Problems reprioritized. Patient report given, questions answered & plan of care reviewed with Marialuisa DUMONT. Patient stable at transfer of care.
--- NOTE | 2018-11-24 19:00 | NUR ---
a/o pleasant teaching done regarding disease process. pt with 20 lef6t ac and 18 left forearm sl.
--- NOTE | 2018-11-24 21:00 | NUR ---
pt took hs meds and ns infusing at 100cc /hr no s&s of distress at this time.
[2018-11-24] MEDS: normal saline 1000ml 1,000 ML IV SCH (21:04)
--- NOTE | 2018-11-24 23:00 | NUR ---
pt resting without changes
[2018-11-25] VITALS (8 sets, daily range): BP systolic 99–117; BP diastolic 65–79
--- NOTE | 2018-11-25 01:00 | NUR ---
pt resting eyes closed without s&s of distress at this time.
--- NOTE | 2018-11-25 03:00 | NUR ---
pt iv sites leaking sites dc'd cath intact got x2 veins blew 4th stick 0400 Jesus got it. right wrist.
--- NOTE | 2018-11-25 05:00 | NUR ---
PT ASKING FOR A SLEEPER INFORMED HE SLEPT FROM 2200 TILL 0140AM AND UNABLE TO AT THIS HOUR AND WHY. PT UNDERSTOOD.
--- NOTE | 2018-11-25 06:08 | NUR ---
Student documentation: I have reviewed and agree with all interventions, assessments performed and documented by JUVE MOE RN STUDENT.Student Medication Administration: For this medication-pass time frame, all medication were reviewed, dispensed, administered and documented per hospital policy by JUVE DUMONT STUDENT. Addendum: 11/25/18 at 0611 by Marialuisa Saini RN Amended: Links added.
--- NOTE | 2018-11-25 06:11 | NUR ---
Problems reprioritized. Patient report given, questions answered & plan of care reviewed with LAKHWINDER DUMONT. Addendum: 11/25/18 at 0612 by Marialuisa Saini RN Amended: Links added.
--- NOTE | 2018-11-25 06:15 | NUR ---
Patient in room PCU 3016. I have received report from Marialuisa DUMONT and had the opportunity to ask questions and assume patient care.
[2018-11-25] MEDS: normal saline 1000ml 1,000 ML IV SCH ×3 (06:49→17:35)
[2018-11-25 06:52] LABS: BASOPHILS # (AUTO) 0.1 X10'3 (0-0.2); BASOPHILS % (AUTO) 1.1 % (0-1); EOSINOPHILS # (AUTO) 0.1 X10'3 (0-0.9); EOSINOPHILS % (AUTO) 1.1 % (0-6); HEMATOCRIT 34.5 % (42.0-52.0); HEMOGLOBIN 11.1 g/dl (14.0-17.9); LYMPHOCYTES # (AUTO) 1.1 X10'3 (1.1-4.8); LYMPHOCYTES % (AUTO) 15.7 % (21-51); MEAN CORPUSCULAR HEMOGLOBIN 26.1 PG (27.0-31.0); MEAN CORPUSCULAR HGB CONC 32.3 g/dL (33.0-36.5); MEAN CORPUSCULAR VOLUME 80.7 FL (78-98); MONOCYTES # (AUTO) 1.5 X10'3 (0-0.9); MONOCYTES % (AUTO) 22.6 % (2-12); NEUTROPHILS # (AUTO) 4.1 X10'3 (1.8-7.7); NEUTROPHILS % (AUTO) 59.5 % (42-75); PLATELET COUNT 278 X10'3 (140-440); RED BLOOD COUNT 4.27 X10'6 (4.70-6.10); WHITE BLOOD COUNT 6.8 X10'3 (4.5-11.0)
[2018-11-25 07:06] LABS: PARTIAL THROMBOPLASTIN TIME 31 SECONDS (22-32); PROTHROMBIN TIME 10.2 SECONDS (9.0-12.0)
[2018-11-25 07:10] LABS: ALANINE AMINOTRANSFERASE 101 U/L (12-78); ALBUMIN/GLOBULIN RATIO 0.8 (1.1-1.5); ALKALINE PHOSPHATASE 69 IU/L (46-116); ANION GAP 10 (8-16); ASPARTATE AMINO TRANSFERASE 38 U/L (10-37); BILIRUBIN,TOTAL 0.4 MG/DL (0.1-1.0); BLOOD UREA NITROGEN 13 MG/DL (7-18); BUN/CREATININE RATIO 12.4 (5.4-32.0); CHLORIDE 100 MMOL/L (99-107); CREATININE 1.05 MG/DL (0.60-1.10); GLUCOSE 99 MG/DL (70-104); MAGNESIUM 2.2 MG/DL (1.5-2.4); PHOSPHORUS 3.4 MG/DL (2.3-4.5); POTASSIUM 3.9 MMOL/L (3.5-5.1); SODIUM 136 MMOL/L (135-145); TOTAL CARBON DIOXIDE 25.8 MMOL/L (24-32); TOTAL PROTEIN 6.9 G/DL (6.4-8.2); eGFR 79 ML/MIN
[2018-11-25] MEDS: K, MAG and/or Phos replacement - Verify level? MC SCH (07:33)
[2018-11-25] MEDS: multivitamin oral liquid (Certavite) 5ml cup PO SCH (08:03)
[2018-11-25] MEDS: thiamine 100mg tablet PO SCH (08:03)
[2018-11-25] MEDS: pantoprazole 40mg Tablet.DR PO SCH ×2 (08:03→20:50)
[2018-11-25] MEDS: folic acid 1mg tablet PO SCH (08:03)
[2018-11-25] MEDS: sucralfate 1gm/10ml UD suspension PO SCH ×4 (08:03→20:49)
[2018-11-25] MEDS: amox tr/potassium clavulanate 875/125mg TAB PO SCH ×2 (08:03→16:44)
[2018-11-25] MEDS: metoclopramide 5 mg/ml inj IV PRN (08:06)
--- NOTE | 2018-11-25 13:11 | NUR ---
Initial: Pt admit with anion gap metabolic acidosis and upper GI bleed. Per MD progress notes pt s/p EGD with findings of esophagitis, on Protonix. Pt also with tachycardia and possibly dehydrated, receiving fluids per MD notes. Pt receiving Thiamine, Folic acid, and MVI d/t hx Etoh abuse. Pt currently on mec soft diet with documented PO intake averaging 75% likely meeting nutrient needs. LBM 11/24. No edema or wounds. No nutrition diagnosis at this time. Will continue to follow. Recommendations: 1) Continue with mec soft diet 2) Continue Thiamine, Folic acid, MVI d/t hx Etoh abuse 3) Wt per rx Addendum: 11/25/18 at [address] Amended: Links added.
[2018-11-25] MEDS ORDERED: mag hydrox/Alum hydrox/simeth 30ml oral suspension PO ONE (17:21)
--- NOTE | 2018-11-25 18:02 | NUR ---
Patient in room PCU 3016. I have received report from JULIA Alfonso and had the opportunity to ask questions and assume patient care.
--- NOTE | 2018-11-25 18:02 | NUR ---
Problems reprioritized. Patient report given, questions answered & plan of care reviewed with Carolina DUMONT.
[2018-11-25] MEDS: LORazepam 1 MG tablet PO PRN (20:50)
[2018-11-25] MEDS: mag hydrox/Alum hydrox/simeth 30ml oral suspension PO SCH (20:50)
[2018-11-26] VITALS (7 sets, daily range): BP systolic 110–129; BP diastolic 60–78
[2018-11-26] MEDS: normal saline 1000ml 1,000 ML IV SCH ×2 (05:10→14:00)
--- NOTE | 2018-11-26 05:49 | NUR ---
Orientee documentation: I have reviewed and agree with interventions, assessments performed and documented by JULIA Williamson, and for this medication-pass time frame, medication were reviewed, dispensed, administered and documented per hospital policy by JULIA Williamson.
--- NOTE | 2018-11-26 06:15 | NUR ---
Pt report given to JULIA Ybarra...all questions answered.
[2018-11-26 06:19] LABS: BASOPHILS % (AUTO) 0.7 % (0-1); EOSINOPHILS # (AUTO) 0.2 X10'3 (0-0.9); EOSINOPHILS % (AUTO) 2.4 % (0-6); HEMATOCRIT 31.9 % (42.0-52.0); HEMOGLOBIN 10.3 g/dl (14.0-17.9); LYMPHOCYTES # (AUTO) 1.8 X10'3 (1.1-4.8); LYMPHOCYTES % (AUTO) 26.6 % (21-51); MEAN CORPUSCULAR HEMOGLOBIN 26.2 PG (27.0-31.0); MEAN CORPUSCULAR HGB CONC 32.3 g/dL (33.0-36.5); MEAN PLATELET VOLUME 7.4 FL (7.4-10.4); MONOCYTES # (AUTO) 1.5 X10'3 (0-0.9); MONOCYTES % (AUTO) 21.7 % (2-12); NEUTROPHILS # (AUTO) 3.4 X10'3 (1.8-7.7); NEUTROPHILS % (AUTO) 48.6 % (42-75); PLATELET COUNT 327 X10'3 (140-440); RED BLOOD COUNT 3.94 X10'6 (4.70-6.10); RED CELL DISTRIBUTION WIDTH 20.9 % (11.5-14.5); WHITE BLOOD COUNT 6.9 X10'3 (4.5-11.0)
[2018-11-26 06:34] LABS: ALANINE AMINOTRANSFERASE 77 U/L (12-78); ALBUMIN 2.8 G/DL (3.4-5.0); ALBUMIN/GLOBULIN RATIO 0.8 (1.1-1.5); ALKALINE PHOSPHATASE 66 IU/L (46-116); ANION GAP 9 (8-16); ASPARTATE AMINO TRANSFERASE 33 U/L (10-37); BILIRUBIN,TOTAL 0.2 MG/DL (0.1-1.0); BLOOD UREA NITROGEN 9 MG/DL (7-18); BUN/CREATININE RATIO 9.2 (5.4-32.0); CALCIUM 8.5 MG/DL (8.5-10.1); CHLORIDE 106 MMOL/L (99-107); CREATININE 0.98 MG/DL (0.60-1.10); GLUCOSE 92 MG/DL (70-104); MAGNESIUM 2.3 MG/DL (1.5-2.4); PHOSPHORUS 3.2 MG/DL (2.3-4.5); POTASSIUM 3.9 MMOL/L (3.5-5.1); SODIUM 140 MMOL/L (135-145); TOTAL CARBON DIOXIDE 25.3 MMOL/L (24-32); TOTAL PROTEIN 6.2 G/DL (6.4-8.2); eGFR 86 ML/MIN
--- NOTE | 2018-11-26 06:50 | NUR ---
Patient in room U 3016. I have received report from JULIA VAUGHN AND JULIA YOON and had the opportunity to ask questions and assume patient care. Addendum: 11/26/18 at 1212 by Amada Nayak RN AM REPORT KARRIE DUMONT SAID SHE STOPPED IV FLUIDS DURING THE NOC SHIFT AND ASKED FOR US TO GET A D/C ORDER ON HI. SHE SAID PT WAS DRINKING FLUIDS.
[2018-11-26 06:54] LABS: PARTIAL THROMBOPLASTIN TIME 31 SECONDS (22-32); PROTHROMBIN TIME 10.2 SECONDS (9.0-12.0)
[2018-11-26] MEDS: K, MAG and/or Phos replacement - Verify level? MC SCH (06:57)
[2018-11-26 07:37] LABS: ANISOCYTOSIS 3+; ELLIPTOCYTES FEW; MICROCYTOSIS 1+; PLATELET ESTIMATE NORMAL; POIKILOCYTOSIS FEW
[2018-11-26] MEDS: mag hydrox/Alum hydrox/simeth 30ml oral suspension PO SCH ×4 (07:52→20:06)
[2018-11-26] MEDS: amox tr/potassium clavulanate 875/125mg TAB PO SCH ×2 (07:53→17:00)
[2018-11-26] MEDS: multivitamin oral liquid (Certavite) 5ml cup PO SCH (07:53)
[2018-11-26] MEDS: sucralfate 1gm/10ml UD suspension PO SCH ×4 (07:53→20:06)
[2018-11-26] MEDS: folic acid 1mg tablet PO SCH (07:54)
[2018-11-26] MEDS: pantoprazole 40mg Tablet.DR PO SCH ×2 (07:54→20:06)
[2018-11-26] MEDS: thiamine 100mg tablet PO SCH (07:54)
--- NOTE | 2018-11-26 08:30 | NUR ---
PTS IV NOT FLUSHING IV ATTEMPT UNSUCCESSFUL. WILL ATTEMPT AGAIN
--- NOTE | 2018-11-26 10:00 | NUR ---
IV PLACED, IV FLUIDS NS @ 125 RESTARTED PER MD ORDERS.
--- NOTE | 2018-11-26 11:00 | NUR ---
DR. VAUHGN IN TO SEE PT. VERIFIED THAT HE DOES WANT IV FLUIDS THAT WERE ORDERED. IV FLUIDS INFUSING
[2018-11-26] MEDS ORDERED: temazepam 15mg capsule PO PRN (11:55)
[2018-11-26] MEDS: metoclopramide 5 mg/ml inj IV PRN (11:57)
--- NOTE | 2018-11-26 17:44 | NUR ---
Student documentation: I have reviewed and agree with all interventions, assessments performed and documented by SUSU.
--- NOTE | 2018-11-26 17:45 | NUR ---
Student Medication Administration: For this medication-pass time frame, all medication were reviewed, dispensed, administered and documented per hospital policy by JULIA CRISTOBAL.
--- NOTE | 2018-11-26 18:10 | NUR ---
Problems reprioritized. Patient report given, questions answered & plan of care reviewed with JULIA LORENZO.
--- NOTE | 2018-11-26 18:22 | NUR ---
Patient in room PCU 3016. I have received report from Amada and had the opportunity to ask questions and assume patient care.
--- NOTE | 2018-11-26 18:24 | NUR ---
Patient in room [facility] 3016. I have received report from Stella DUMONT and had the opportunity to ask questions and assume patient care. Pt currently laying in bed. Small headache reported. No other issues at this time. Ate 100% of dinner tray. Addendum: 11/26/18 at 1846 by Steffi Nevarez RN INCORRECT PT: Patient in room [facility] 3016. I have received report from Amada DUMONT and had the opportunity to ask questions and assume patient care. Pt currently sitting up in bedside chair. Complains of indigestion at this time. No other issues. Pleasant.
[2018-11-27 02:00] VITALS: BP 110/62
[2018-11-27] MEDS: normal saline 1000ml 1,000 ML IV SCH (03:00)
[2018-11-27 06:00] VITALS: BP 106/60
[2018-11-27 06:14] LABS: BASOPHILS # (AUTO) 0.1 X10'3 (0-0.2); EOSINOPHILS # (AUTO) 0.2 X10'3 (0-0.9); EOSINOPHILS % (AUTO) 2.7 % (0-6); HEMATOCRIT 29.7 % (42.0-52.0); HEMOGLOBIN 9.9 g/dl (14.0-17.9); LYMPHOCYTES # (AUTO) 2.2 X10'3 (1.1-4.8); LYMPHOCYTES % (AUTO) 33.4 % (21-51); MEAN CORPUSCULAR HEMOGLOBIN 26.7 PG (27.0-31.0); MEAN CORPUSCULAR HGB CONC 33.1 g/dL (33.0-36.5); MEAN CORPUSCULAR VOLUME 80.7 FL (78-98); MEAN PLATELET VOLUME 7.3 FL (7.4-10.4); MONOCYTES # (AUTO) 1.2 X10'3 (0-0.9); MONOCYTES % (AUTO) 17.6 % (2-12); NEUTROPHILS # (AUTO) 3.1 X10'3 (1.8-7.7); NEUTROPHILS % (AUTO) 45.3 % (42-75); PLATELET COUNT 418 X10'3 (140-440); RED BLOOD COUNT 3.69 X10'6 (4.70-6.10); RED CELL DISTRIBUTION WIDTH 20.8 % (11.5-14.5); WHITE BLOOD COUNT 6.7 X10'3 (4.5-11.0)
--- NOTE | 2018-11-27 06:17 | NUR ---
Problems reprioritized. Patient report given, questions answered & plan of care reviewed with Kamilah DUMONT.
--- NOTE | 2018-11-27 06:17 | NUR ---
Problems reprioritized. Patient report given, questions answered & plan of care reviewed with Kamilah.
--- NOTE | 2018-11-27 06:27 | NUR ---
Patient in room PCU 3016. I have received report from Kat/Merrill RNs and had the opportunity to ask questions and assume patient care. Addendum: 11/27/18 at 0627 by Kamilah Tucker RN Amended: Links added.
[2018-11-27 06:30] LABS: ALANINE AMINOTRANSFERASE 69 U/L (12-78); ALBUMIN 2.5 G/DL (3.4-5.0); ALBUMIN/GLOBULIN RATIO 0.7 (1.1-1.5); ALKALINE PHOSPHATASE 61 IU/L (46-116); ANION GAP 8 (8-16); ASPARTATE AMINO TRANSFERASE 30 U/L (10-37); BILIRUBIN,TOTAL 0.2 MG/DL (0.1-1.0); BLOOD UREA NITROGEN 11 MG/DL (7-18); BUN/CREATININE RATIO 11.3 (5.4-32.0); CALCIUM 8.4 MG/DL (8.5-10.1); CHLORIDE 107 MMOL/L (99-107); CREATININE 0.97 MG/DL (0.60-1.10); GLUCOSE 91 MG/DL (70-104); MAGNESIUM 2.3 MG/DL (1.5-2.4); PHOSPHORUS 3.1 MG/DL (2.3-4.5); POTASSIUM 3.8 MMOL/L (3.5-5.1); SODIUM 142 MMOL/L (135-145); TOTAL CARBON DIOXIDE 27.1 MMOL/L (24-32); TOTAL PROTEIN 5.9 G/DL (6.4-8.2); eGFR 87 ML/MIN
[2018-11-27 06:39] LABS: PARTIAL THROMBOPLASTIN TIME 30 SECONDS (22-32); PROTHROMBIN TIME 10.3 SECONDS (9.0-12.0)
[2018-11-27] MEDS: K, MAG and/or Phos replacement - Verify level? MC SCH (07:40)
[2018-11-27] MEDS: multivitamin oral liquid (Certavite) 5ml cup PO SCH (07:41)
[2018-11-27] MEDS: thiamine 100mg tablet PO SCH (07:42)
[2018-11-27] MEDS: amox tr/potassium clavulanate 875/125mg TAB PO SCH ×2 (07:42→17:30)
[2018-11-27] MEDS: mag hydrox/Alum hydrox/simeth 30ml oral suspension PO SCH ×3 (07:42→17:00)
[2018-11-27] MEDS: folic acid 1mg tablet PO SCH (07:42)
[2018-11-27] MEDS: pantoprazole 40mg Tablet.DR PO SCH (07:42)
[2018-11-27] MEDS: sucralfate 1gm/10ml UD suspension PO SCH ×3 (07:42→16:00)
[2018-11-27 08:22] LABS: ANISOCYTOSIS 3+; HYPOCHROMASIA 1+; PLATELET ESTIMATE NORMAL
[2018-11-27] MEDS ORDERED: venlafaxine XR 37.5mg cap (Q24H) PO SCH (09:30)
[2018-11-27] MEDS ORDERED: gabapentin 300mg capsule PO SCH (09:30)
--- NOTE | 2018-11-27 10:43 | NUR ---
Pt. cooperative with meds. Answers questions appropriately but appears withdrawn. Prefers the room door to remain closed at all times to reduce noise.
[2018-11-27 11:00] VITALS: BP 109/73
--- NOTE | 2018-11-27 11:05 | NUR ---
Dr. Valencia saw pt. Stated he will dc pt home today. Stated to use [facility] for new meds. Dr. Valencia said pt's ride home cannot get him until 1600 today. RN confirmed that with pt. RN notified charge nurse Tom of dc plans.
[2018-11-27] MEDS ORDERED: GABA300C PO (11:44)
[2018-11-27] MEDS ORDERED: FOLI1TAB16 PO (11:44)
[2018-11-27] MEDS ORDERED: thiamine tablet PO (11:44)
[2018-11-27] MEDS ORDERED: PANT40TA4 PO (11:44)
[2018-11-27] MEDS ORDERED: EFF37.5XRC PO (11:44)
[2018-11-27] MEDS ORDERED: MULT-1085 PO (11:44)
[2018-11-27] MEDS: metoclopramide 5 mg/ml inj IV PRN (13:32)
--- NOTE | 2018-11-27 13:37 | NUR ---
Pt. suddenly vomited x 1. Reglan administered per MR order.
--- NOTE | 2018-11-27 14:04 | NUR ---
New RXs delivered to pt's bedside by Tyler.
[2018-11-27 15:00] VITALS: BP 128/59
--- NOTE | 2018-11-27 16:06 | NUR ---
Pillo from admitting came up to give pt. his belongings from safe.
== END 2018-11-27 17:46 | disposition home or self-care (01) | DRG 242 ==
LOC: ER 11:23 → ED HOLD 14:36 → CICU 2S 17:37 → PCU 3S 11-22 16:30
PROVIDERS: ATTEND Family Medicine
PROC: 0DJ08ZZ Inspection of Upper Intestinal Tract, Via Natural or Artificial Opening Endoscopic (ICD-10-PCS; principal; 2018-11-20)
PROC: 30233N1 Transfusion of Nonautologous Red Blood Cells into Peripheral Vein, Percutaneous Approach (ICD-10-PCS; 2018-11-20)
DX: K22.11 Ulcer of esophagus with bleeding (principal); N17.9 Acute kidney failure, unspecified; E87.2 Acidosis; F33.2 Major depressive disorder, recurrent severe without psychotic features; E87.1 Hypo-osmolality and hyponatremia; D62 Acute posthemorrhagic anemia; R56.9 Unspecified convulsions; K22.2 Esophageal obstruction; F10.20 Alcohol dependence, uncomplicated; J32.9 Chronic sinusitis, unspecified; R39.198 Other difficulties with micturition; E86.0 Dehydration; F90.9 Attention-deficit hyperactivity disorder, unspecified type; K21.0 Gastro-esophageal reflux disease with esophagitis; W18.39XA Other fall on same level, initial encounter; K44.9 Diaphragmatic hernia without obstruction or gangrene; B19.20 Unspecified viral hepatitis C without hepatic coma; R00.0 Tachycardia, unspecified; Z91.5 Personal history of self-harm; Y93.89 Activity, other specified; Y92.512 Supermarket, store or market as the place of occurrence of the external cause; Y99.8 Other external cause status; Z91.011 Allergy to milk products; Z71.41 Alcohol abuse counseling and surveillance of alcoholic
CPT/HCPCS: 36415; 36430; 70450; 71045; 80048; 80053; 80076; 80305; 80320; 81001; 82140; 82570; 82948; 83605; 83735; 83930; 83935; 84100; 84145; 84300; 85025; 85610; 85730; 86885; 86900; 86901; 86920; 87040; 87070; 96374; 96375; 97116; 97161; 97530; 99152; 99153; 99291; C9113; G0378; J0171; J2060; J2250; J2354; J2405; J2765; J3010; J3411; J7030; P9016; Q0163

== ENCOUNTER 2019-11-29 07:32 | Emergency (ER) | payer MEDICAID ==
[~2019-11-29] VITALS: Ht 165.1 cm; Wt 68.2 kg
[~2019-11-29 07:32] MED LIST changes: +EFF37.5XRC PO; +FOLI1TAB16 PO; +GABA300C PO; +MULT-1085 PO; -PANT-47 PO; +PANT40TA4 PO; +thiamine tablet PO
[2019-11-29] MEDS ORDERED: metoclopramide 5 mg/ml inj IV ONE (08:10)
[2019-11-29] MEDS ORDERED: normal saline 1000ML IV soln IV ONE (08:10)
[2019-11-29 08:26] LABS: BASOPHILS # (AUTO) 0.1 X10'3 (0-0.2); BASOPHILS % (AUTO) 1.4 % (0-1); EOSINOPHILS % (AUTO) 0.5 % (0-6); HEMATOCRIT 34.5 % (42.0-52.0); HEMOGLOBIN 10.7 g/dl (14.0-17.9); LYMPHOCYTES # (AUTO) 1.6 X10'3 (1.1-4.8); LYMPHOCYTES % (AUTO) 18.2 % (21-51); MEAN CORPUSCULAR HEMOGLOBIN 22.7 PG (27.0-31.0); MEAN CORPUSCULAR HGB CONC 31.1 g/dL (33.0-36.5); MEAN PLATELET VOLUME 7.7 FL (7.4-10.4); MONOCYTES # (AUTO) 0.6 X10'3 (0-0.9); MONOCYTES % (AUTO) 7.3 % (2-12); NEUTROPHILS # (AUTO) 6.2 X10'3 (1.8-7.7); NEUTROPHILS % (AUTO) 72.6 % (42-75); PLATELET COUNT 442 X10'3 (140-440); RED BLOOD COUNT 4.72 X10'6 (4.70-6.10); RED CELL DISTRIBUTION WIDTH 18.4 % (11.5-14.5); WHITE BLOOD COUNT 8.6 X10'3 (4.5-11.0)
[2019-11-29 08:35] LABS: CLARITY,URINE CLEAR (Clear); COLOR,URINE YELLOW (Yellow); GLUCOSE, URINE NEGATIVE (Neg); KETONES,URINE TRACE mg/dl (Neg); LEUKOCYTE ESTERASE ,URINE NEGATIVE (Neg); NITRITES, URINE NEGATIVE (Neg); OCCULT BLOOD,URINE NEGATIVE (Neg); PROTEIN,URINE NEGATIVE (Neg); UROBILINOGEN,URINE 0.2 E.U/dL (0.2-1.0)
[2019-11-29 08:37] LABS: PARTIAL THROMBOPLASTIN TIME 28 SECONDS (22-32)
[2019-11-29 08:41] LABS: ALANINE AMINOTRANSFERASE 24 U/L (12-78); ALBUMIN 4.3 G/DL (3.4-5.0); ALKALINE PHOSPHATASE 99 IU/L (46-116); ANION GAP 11 (8-16); ASPARTATE AMINO TRANSFERASE 42 U/L (10-37); BILIRUBIN,TOTAL 0.5 MG/DL (0.1-1.0); BLOOD UREA NITROGEN 11 MG/DL (7-18); BUN/CREATININE RATIO 9.9 (5.4-32.0); CALCIUM 8.7 MG/DL (8.5-10.1); CHLORIDE 101 MMOL/L (99-107); CREATININE 1.11 MG/DL (0.60-1.10); GLUCOSE 92 MG/DL (70-104); POTASSIUM 3.6 MMOL/L (3.5-5.1); SODIUM 139 MMOL/L (135-145); TOTAL CARBON DIOXIDE 27.1 MMOL/L (24-32); TOTAL PROTEIN 8.5 G/DL (6.4-8.2); eGFR 74 ML/MIN
[2019-11-29 08:41] LABS: UA COLLECTION TYPE URINAL
[2019-11-29] MEDS ORDERED: PANT20TA3 PO (09:12)
[2019-11-29] MEDS ORDERED: SUCR1TAB34 PO (09:12)
[2019-11-29 10:11] VITALS: BP 131/45
== END 2019-11-29 10:12 | disposition home or self-care (01) ==
LOC: ER 07:33
DX: K92.0 Hematemesis (principal); D53.9 Nutritional anemia, unspecified; R10.11 Right upper quadrant pain; R11.2 Nausea with vomiting, unspecified; K21.9 Gastro-esophageal reflux disease without esophagitis; Z79.899 Other long term (current) drug therapy
CPT/HCPCS: 36415; 80053; 81003; 85025; 85610; 85730; 86885; 86900; 86901; 93005; 96361; 96374; 99284; J2765; J7030